=== PATIENT | female | born 1990 | race Caucasian/White ===

== ENCOUNTER 2018-03-09 16:57 | Inpatient (IN) | payer OTHER ==
[2018-03-09 18:05] VITALS: BMI 20.4
--- NOTE | 2018-03-10 | HP ---
COWS - Scale Resting Pulse: 2= [place] 101-120 Sweatin=Flushed/Facial Moisture Restless Observation: 0= Sits Still Pupil Size: 1= Pupils >than Normal Bone or Joint Aches: 2= Severe Diffuse Aches Runny Nose/ Eye Tearin= Nasal Congestion GI Upset > 30mins: 3= Vomiting/Diarrhea (vomiting x 3, diarrhea x 2) Tremor Observation: 2= Slight Tremor Visible Yawning Observation: 0= None Anxiety or Irritability: 4=Extreme Anxiety Goose Flesh Skin: 0=Smooth Skin COWS Score: 17 Admission ROS [facility] - [facility] Chief Complaint: Heroin withdrawal symptoms Allergies/Adverse Reactions: Allergies Allergy/AdvReac Type Severity Reaction Status Date / Time No Known Allergies Allergy Verified 03/09/18 23:51 History of Present Illness: 27 years old female with 5 months of heroin addiction is seeking admission to detox. This is her first admission to [facility] and first detox. Patient has a medical history of heart murmur, GERD and anxiety. She denies suicide attempt and suicidal ideation at this time. Exam Limitations: No Limitations - Ebola screening Have you traveled outside of the country in the last 21 days: No (N) Have you had contact with anyone from an Ebola affected area: No Have you been sick,other than usual withdrawal symptoms: No Do you have a fever: No - Review of Systems Constitutional: Loss of Appetite, Malaise, Night Sweats, Changes in sleep EENT: reports: No Symptoms Reported Respiratory: reports: No Symptoms reported Cardiac: reports: No Symptoms Reported GI: reports: Diarrhea, Poor Appetite, Poor Fluid Intake, Abdominal cramping : reports: No Symptoms Reported Musculoskeletal: reports: Back Pain Integumentary: reports: Dryness Neuro: reports: Headache, Tremors Endocrine: reports: No Symptoms Reported Hematology: reports: No Symptoms Reported Psychiatric: reports: Orientated x3, Anxious Other Systems: Reviewed and Negative Patient History - Patient Medical History Hx Anemia: No Hx Asthma: No Hx Chronic Obstructive Pulmonary Disease (COPD): No Hx Cancer: No Hx Cardiac Disorders: Yes (HEART MURMUR - NOT ON MEDICATION) Hx Congestive Heart Failure: No Hx Hypertension: No Hx Hypercholesterolemia: No Hx Pacemaker: No HX Cerebrovascular Accident: No Hx Seizures: No Hx Dementia: No Hx Diabetes: No Hx Gastrointestinal Disorders: Yes (GERD - NEXIUM) Hx Liver Disease: No Hx Genitourinary Disorders: No Hx Sexually Transmitted Disorders: No Hx Renal Disease (ESRD): No Hx Thyroid Disease: No Hx Human Immunodeficiency Virus (HIV): No (NEGATIVE 2018) Hx Hepatitis C: No Hx Depression: No Hx Suicide Attempt: No (DENIES SUICIDAL ATTEMPT?IDEATION AT THIS TIME) Hx Bipolar Disorder: No Hx Schizophrenia: No Other Medical History: ANXIETY - NOT ON MEDICATION - Patient Surgical History Past Surgical History: No - PPD History Previous Implant?: Yes Documented Results: Negative w/o proof Implanted On Prior R Admission?: No PPD to be Administered?: No - Reproductive History Patient is a Female of Child Bearing Age (11 -55 yrs old): Yes Last Menstrual Period: 10/13/17 Patient : No - Smoking Cessation Smoking history: Current every day smoker Have you smoked in the past 12 months: Yes Aproximately how many cigarettes per day: 40 Hx Chewing Tobacco Use: No Initiated information on smoking cessation: Yes 'Breaking Loose' booklet given: 03/10/18 - Substance & Tx. History Hx Alcohol Use: No Hx Substance Use: Yes Substance Use Type: Heroin, Marijuana, Opiates Hx Substance Use Treatment: No - Substances Abused Heroin Route: Injection Frequency: Daily Amount used: 1 BUNDLE Age of first use: 27 Date of Last Use: 03/09/18 Marijuana/Hashish Route: Smoking Frequency: 1-3 times last 30 days Amount used: 1 JOINT Age of first use: 13 Date of Last Use: 03/09/18 Family Disease History - Family Disease History Family Disease History: CA: Mother (Retinoblastoma), Other: Father (Hep. C) Admission Physical Exam S - Vital Signs Vital Signs: Vital Signs - 24 hr 03/09/18 18:03 Temperature 97.9 F Pulse Rate 104 H Respiratory 18 Rate Blood Pressure 142/80 - Physical General Appearance: Yes: Moderate Distress, Irritable, Sweating, Anxious HEENTM: Yes: EOMI, Normal ENT Inspection, Normal Voice, EVON Respiratory: Yes: Lungs Clear, Normal Breath Sounds, No Respiratory Distress Neck: Yes: Supple Breast: Yes: Breast Exam Deferred Cardiology: Yes: Tachycardia Abdominal: Yes: Normal Bowel Sounds Genitourinary: Yes: Within Normal Limits Back: Yes: Normal Inspection Musculoskeletal: Yes: Back pain, Muscle Pain Extremities: Yes: Tremors Neurological: Yes: ui application developer II-XII NML intact, Alert, Normal Mood/Affect Integumentary: Yes: Warm Lymphatic: Yes: Within Normal Limits - Diagnostic (1) Opioid dependence with withdrawal Current Visit: Yes Status: Chronic (2) Anxiety Current Visit: Yes Status: Chronic (3) Heart murmur Current Visit: Yes Status: Chronic (4) GERD (gastroesophageal reflux disease) Current Visit: Yes Status: Chronic (5) Nicotine dependence Current Visit: Yes Status: Chronic Qualifiers: Nicotine product type: cigarettes Substance use status: uncomplicated Qualified Code(s): F17.210 - Nicotine dependence, cigarettes, uncomplicated Cleared for Admission [facility] - Detox or Rehab [facility] Level of Care: Medically Managed Detox Regimen/Protocol: Methadone [facility] Breath Alcohol Content Breath Alcohol Content: 0 Urine Pregancy Test - Result Urine Test Results: Negative- NO Line Present Urine Drug Screen - Results Drug Screen Negative: No Urine Drug Screen Results: THC-Marijuana, OPI-Opiates, OXY-Oxycodone
[2018-03-10] MEDS ORDERED: NICOTINE POLACRILEX 2 MG GUM BC PRN (00:26)
[2018-03-10] MEDS ORDERED: IBUPROFEN 400 MG TABLET (FP) PO PRN (00:26)
[2018-03-10] MEDS ORDERED: MENTHOL/PHENOL 1 EACH UD MM PRN (00:26)
[2018-03-10] MEDS ORDERED: MAGNESIUM HYDROX 2400MG/30ML ORAL SUSPENSION 30 ML CUP PO PRN (00:26)
[2018-03-10] MEDS ORDERED: LOPERAMIDE HCL 2 MG CAPSULE PO PRN (00:26)
[2018-03-10] MEDS ORDERED: guaiFENesin/D-METHORPHAN HB 10 ML UNIT-DOSE CUPS PO PRN (00:26)
[2018-03-10] MEDS ORDERED: MAGNESIUM CITRATE 300 ML BOTTLE PO PRN (00:26)
[2018-03-10] MEDS ORDERED: MAG HYDROX/AL HYDROX/SIMETH 30 ML UNIT-DOSE CUP PO PRN (00:26)
[2018-03-10] MEDS ORDERED: P-EPHED 60MG/TRIPROLIDI 2.5MG TABLET PO PRN (00:26)
[2018-03-10] MEDS ORDERED: METHADONE HCL 10 MG TABLET (FOR DETOX USE ONLY) PO ONE ×3 (01:00→23:00)
[2018-03-10] MEDS: diazePAM 5 MG TABLET PO PRN ×3 (02:27→22:34)
[2018-03-10] MEDS: PRENATAL VITAMINS W/ FOLIC ACID TABLET (FP) PO SCH (10:37)
[2018-03-10] MEDS: NICOTINE 14 MG/24 HOURS TOPICAL PATCH TD SCH (10:37)
--- NOTE | 2018-03-10 11:44 | PN ---
BHS COWS - Scale Resting Pulse: 1= [place] 81-100 Sweatin=Flushed/Facial Moisture Restless Observation: 1= Difficult to Sit Still Pupil Size: 0= Normal to Room Light Bone or Joint Aches: 2= Severe Diffuse Aches Runny Nose/ Eye Tearin= Nasal Congestion GI Upset > 30mins: 0= None Tremor Observation of Outstretched Hands: 2= Slight Tremor Visible Yawning Observation: 2= >3x During Session Anxiety or Irritability: 2=Irritable/Anxious Goose Flesh Skin: 3=Piloerection COWS Score: 16 BHS Progress Note (SOAP) Subjective: sweats agitation restless nausea some shakes chills Objective: 03/10/18 11:41 Vital Signs Temperature 97.8 F 03/10/18 09:47 Pulse Rate 87 03/10/18 09:47 Respiratory Rate 16 03/10/18 09:47 Blood Pressure 125/64 03/10/18 09:47 O2 Sat by Pulse Oximetry (%) labs pending aaox3 ambulating no acute distress Assessment: 03/10/18 11:42 withdrawal sx Plan: continue detox increase fluids
--- NOTE | 2018-03-10 13:16 | EKG ---
Test Reason : Blood Pressure : / mmHG Vent. Rate : 091 BPM Atrial Rate : 091 BPM P-R Int : 128 ms QRS Dur : 076 ms QT Int : 334 ms P-R-T Axes : 055 076 043 degrees QTc Int : 410 ms NORMAL SINUS RHYTHM WITH SINUS ARRHYTHMIA NORMAL ECG NO PREVIOUS ECGS AVAILABLE Confirmed by MD IRENA, ROD ([id number]) on 03/10/2018 1:16:20 PM Referred By: Confirmed By:ORD OSBORN MD
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
[2018-03-10] MEDS ORDERED: MELATONIN 5 MG TABLETS PO PRN (22:00)
[2018-03-10] MEDS: THIAMINE HCL 100 MG TABLET (FP) PO SCH (22:34)
[2018-03-10] MEDS: traZODone HCL 100 MG TABLET (FP) PO SCH (22:34)
[2018-03-10] MEDS: ACETAMINOPHEN 325 MG TABLET (FP) PO PRN (22:35)
[2018-03-11] MEDS ORDERED: METHADONE HCL 10 MG TABLET (FOR DETOX USE ONLY) PO ONE (10:00)
[2018-03-11] MEDS: PRENATAL VITAMINS W/ FOLIC ACID TABLET (FP) PO SCH (10:30)
[2018-03-11] MEDS: diazePAM 5 MG TABLET PO PRN ×2 (10:31→23:37)
[2018-03-11] MEDS: ACETAMINOPHEN 325 MG TABLET (FP) PO PRN (10:32)
[2018-03-11 10:49] LABS: HEMATOCRIT 35.6 % (32.4-45.2); HEMOGLOBIN 11.4 GM/dL (10.7-15.3); MCH 27.2 pg (25.7-33.7); MCHC 32.1 g/dl (32.0-36.0); MEAN CELL VOLUME 84.9 fl (80-96); MEAN PLT VOLUME 6.9 fl (7.5-11.1); PLATELET COUNT 344 K/MM3 (134-434); RBC 4.19 M/mm3 (3.60-5.2); RDW 17.3 % (11.6-15.6); WHITE BLOOD COUNT 9.5 K/mm3 (4.0-10.0)
[2018-03-11 10:53] LABS: ALBUMIN 2.8 g/dl (3.4-5.0); ALK PHOS 76 U/L (45-117); ANION GAP 4 MMOL/L (8-16); BILIRUBIN,TOTAL 0.2 mg/dL (0.2-1); BLOOD UREA NITROGEN 15 mg/dL (7-18); CALCIUM 8.8 mg/dL (8.5-10.1); CHLORIDE 107 mmol/L (98-107); CO2 28 mmol/L (21-32); CREATININE 0.6 mg/dL (0.55-1.3); GLUCOSE,RANDOM 86 mg/dL (74-106); POTASSIUM 4.4 mmol/L (3.5-5.1); SGOT/AST 18 U/L (15-37); SGPT/ALT 21 U/L (13-61); SODIUM 139 mmol/L (136-145); TOT PROT 6.2 g/dl (6.4-8.2)
--- NOTE | 2018-03-11 11:01 | PN ---
BHS COWS - Scale Resting Pulse: 1= [place] 81-100 Sweatin=Flushed/Facial Moisture Restless Observation: 1= Difficult to Sit Still Pupil Size: 0= Normal to Room Light Bone or Joint Aches: 1= Mild Discomfort Runny Nose/ Eye Tearin= Nasal Congestion GI Upset > 30mins: 0= None Tremor Observation of Outstretched Hands: 2= Slight Tremor Visible Yawning Observation: 2= >3x During Session Anxiety or Irritability: 2=Irritable/Anxious Goose Flesh Skin: 3=Piloerection COWS Score: 15 BHS Progress Note (SOAP) Subjective: irritable agitation anxiety body aches sweats Objective: 03/11/18 10:59 Vital Signs Temperature 98.2 F 03/11/18 10:28 Pulse Rate 84 03/11/18 10:28 Respiratory Rate 18 03/11/18 10:28 Blood Pressure 114/56 L 03/11/18 10:28 O2 Sat by Pulse Oximetry (%) Laboratory Tests 03/11/18 03/11/18 07:00 07:00 WBC 9.5 RBC 4.19 Hgb 11.4 Hct 35.6 MCV 84.9 MCH 27.2 MCHC 32.1 RDW 17.3 H Plt Count 344 MPV 6.9 L Sodium 139 Potassium 4.4 Chloride 107 Carbon Dioxide 28 Anion Gap 4 L BUN 15 Creatinine 0.6 Creat Clearance w eGFR > 60 Random Glucose 86 Calcium 8.8 Total Bilirubin 0.2 AST 18 ALT 21 Alkaline Phosphatase 76 Total Protein 6.2 L Albumin 2.8 L aaox3 ambulating no acute distress Assessment: 03/11/18 11:00 withdrawal sx Plan: continue detox increase fluids
[2018-03-11] MEDS: NICOTINE 14 MG/24 HOURS TOPICAL PATCH TD SCH (11:10)
[2018-03-11] MEDS ORDERED: TRIMETHOBENZAMIDE HCL 200MG/2ML INJ IM PRN (15:10)
[2018-03-11] MEDS ORDERED: ONDANSETRON *ODT* 4 MG TABLET SL PRN ×2 (15:10→15:19)
[2018-03-11] MEDS ORDERED: TRIMETHOBENZAMIDE HCL 300 MG CAPSULE PO PRN (15:14)
[2018-03-11 21:55] LABS: URINE APPEARANCE SLCLOUDY; URINE BILIRUBIN NEGATIVE (<2.0 mg/dL); URINE COLOR YELLOW; URINE GLUCOSE (UA) NEGATIVE (NEGATIVE); URINE KETONE NEGATIVE (NEGATIVE); URINE LEUK ESTERASE NEGATIVE (NEGATIVE); URINE NITRITE NEGATIVE (NEGATIVE); URINE PROTEIN NEGATIVE (NEGATIVE); URINE UROBILINOGEN NEGATIVE mg/dL (0.2-1.0)
[2018-03-11] MEDS: THIAMINE HCL 100 MG TABLET (FP) PO SCH (23:37)
[2018-03-11] MEDS: traZODone HCL 100 MG TABLET (FP) PO SCH (23:37)
[2018-03-12] MEDS ORDERED: METHADONE HCL 5 MG TABLET (FOR DETOX USE ONLY) PO ONE (10:00)
[2018-03-12] MEDS: PRENATAL VITAMINS W/ FOLIC ACID TABLET (FP) PO SCH (10:55)
[2018-03-12] MEDS: diazePAM 5 MG TABLET PO PRN (10:55)
[2018-03-12] MEDS: NICOTINE 14 MG/24 HOURS TOPICAL PATCH TD SCH (10:56)
--- NOTE | 2018-03-12 11:32 | PN ---
BHS Progress Note (SOAP) Subjective: stomach cramping sweats interrupted sleep Objective: 03/12/18 11:32 Vital Signs Temperature 97.3 F L 03/12/18 08:28 Pulse Rate 80 03/12/18 08:28 Respiratory Rate 16 03/12/18 08:28 Blood Pressure 111/47 L 03/12/18 08:28 O2 Sat by Pulse Oximetry (%) aaox3 ambulating no acute distress Assessment: 03/12/18 11:33 withdrawals sx Plan: continue detox increase fluids MOM prn
[2018-03-12 13:58] VITALS: BP 121/73; PULSE 85; TEMP 97.5
--- NOTE | 2018-03-12 18:13 | PN ---
S Progress Note Note: Vital Signs Temperature 97.5 F L 03/12/18 13:56 Pulse Rate 85 03/12/18 13:56 Respiratory Rate 18 03/12/18 13:56 Blood Pressure 121/73 03/12/18 13:56 O2 Sat by Pulse Oximetry (%) Patient did not wait, left AMA
--- NOTE | 2018-03-12 18:16 | DS ---
[facility] Detox Discharge Summary Admission Date: 03/10/18 Discharge Date: 03/12/18 - History Present History: Opioid Dependence Additional Comments: Patient left AMA. Patient to followup with primary care provider. If worsening symptoms are present patient to follow up with ED. - Physical Exam Results Vital Signs: Vital Signs Temperature 97.5 F L 03/12/18 13:56 Pulse Rate 85 03/12/18 13:56 Respiratory Rate 18 03/12/18 13:56 Blood Pressure 121/73 03/12/18 13:56 O2 Sat by Pulse Oximetry (%) Pertinent Admission Physical Exam Findings: Vital Signs Temperature 97.5 F L 03/12/18 13:56 Pulse Rate 85 03/12/18 13:56 Respiratory Rate 18 03/12/18 13:56 Blood Pressure 121/73 03/12/18 13:56 O2 Sat by Pulse Oximetry (%) Laboratory Last Values WBC 9.5 K/mm3 (4.0-10.0) 03/11/18 07:00 RBC 4.19 M/mm3 (3.60-5.2) 03/11/18 07:00 Hgb 11.4 GM/dL (10.7-15.3) 03/11/18 07:00 Hct 35.6 % (32.4-45.2) 03/11/18 07:00 MCV 84.9 fl (80-96) 03/11/18 07:00 MCH 27.2 pg (25.7-33.7) 03/11/18 07:00 MCHC 32.1 g/dl (32.0-36.0) 03/11/18 07:00 RDW 17.3 % (11.6-15.6) H 03/11/18 07:00 Plt Count 344 K/MM3 (134-434) 03/11/18 07:00 MPV 6.9 fl (7.5-11.1) L 03/11/18 07:00 Sodium 139 mmol/L (136-145) 03/11/18 07:00 Potassium 4.4 mmol/L (3.5-5.1) 03/11/18 07:00 Chloride 107 mmol/L (98-107) 03/11/18 07:00 Carbon Dioxide 28 mmol/L (21-32) 03/11/18 07:00 Anion Gap 4 MMOL/L (8-16) L 03/11/18 07:00 BUN 15 mg/dL (7-18) 03/11/18 07:00 Creatinine 0.6 mg/dL (0.55-1.3) 03/11/18 07:00 Creat Clearance w eGFR > 60 (>60) 03/11/18 07:00 Random Glucose 86 mg/dL (74-106) 03/11/18 07:00 Calcium 8.8 mg/dL (8.5-10.1) 03/11/18 07:00 Total Bilirubin 0.2 mg/dL (0.2-1) 03/11/18 07:00 AST 18 U/L (15-37) 03/11/18 07:00 ALT 21 U/L (13-61) 03/11/18 07:00 Alkaline Phosphatase 76 U/L (45-117) 03/11/18 07:00 Total Protein 6.2 g/dl (6.4-8.2) L 03/11/18 07:00 Albumin 2.8 g/dl (3.4-5.0) L 03/11/18 07:00 Urine Color Yellow 03/11/18 16:00 Urine Appearance Slcloudy 03/11/18 16:00 Urine pH 5.0 (5.0-8.0) 03/11/18 16:00 Ur Specific [place] 1.020 (1.010-1.035) 03/11/18 16:00 Urine Protein Negative (NEGATIVE) 03/11/18 16:00 Urine Glucose (UA) Negative (NEGATIVE) 03/11/18 16:00 Urine Ketones Negative (NEGATIVE) 03/11/18 16:00 Urine Blood Negative (NEGATIVE) 03/11/18 16:00 Urine Nitrite Negative (NEGATIVE) 03/11/18 16:00 Urine Bilirubin Negative (<2.0 mg/dL) 03/11/18 16:00 Urine Urobilinogen Negative mg/dL (0.2-1.0) 03/11/18 16:00 Ur Leukocyte Esterase Negative (NEGATIVE) 03/11/18 16:00 RPR Titer Nonreactive (NONREACTIVE) 03/11/18 07:00 - Medication Discharge Medications: Ambulatory Orders traZODone HCL [Trazodone HCl] 100 mg PO HS 10/16/18 - Diagnosis (1) Opioid dependence with withdrawal Current Visit: Yes Status: Acute (2) GERD (gastroesophageal reflux disease) Current Visit: Yes Status: Chronic Qualifiers: Esophagitis presence: without esophagitis Qualified Code(s): K21.9 - Gastro -esophageal reflux disease without esophagitis (3) Heart murmur Current Visit: Yes Status: Chronic (4) Nicotine dependence Current Visit: Yes Status: Chronic Qualifiers: Nicotine product type: cigarettes Substance use status: uncomplicated Qualified Code(s): F17.210 - Nicotine dependence, cigarettes, uncomplicated - AMA Did Patient Leave Against Medical Advice: Yes
[2018-03-13] MEDS ORDERED: METHADONE HCL 5 MG TABLET (FOR DETOX USE ONLY) PO ONE (10:00)
[2018-03-14] MEDS ORDERED: METHADONE HCL 10 MG TABLET (FOR DETOX USE ONLY) PO ONE (10:00)
[2018-03-15] MEDS ORDERED: METHADONE HCL 5 MG TABLET (FOR DETOX USE ONLY) PO ONE (06:00)
== END 2018-03-12 17:50 | disposition left against medical advice (07) | DRG 770 ==
LOC: YASAS 16:57 → Y6N 03-10 00:14
PROC: HZ2ZZZZ Detoxification Services for Substance Abuse Treatment (ICD-10-PCS; principal; 2018-03-10)
DX: F11.23 Opioid dependence with withdrawal (principal); F17.210 Nicotine dependence, cigarettes, uncomplicated; F41.9 Anxiety disorder, unspecified; K21.9 Gastro-esophageal reflux disease without esophagitis; R01.1 Cardiac murmur, unspecified; R00.0 Tachycardia, unspecified
CPT/HCPCS: 36415; 80053; 81003; 85027; 86593; 93005; 93010; Q0162